=== PATIENT | female | born 1970 | race Caucasian/White ===

== ENCOUNTER → 2017-03-19 | Outpatient (CLI) | payer BC ==
[~2017-03-19] MED LIST: LEVO88TA3 PO; MTR600X PO; OXYC5TAB PO; RIZA5TAB10 PO; SPIR50TA2 PO; VALA1TAB PO
--- NOTE | 2017-03-20 07:47 | MAMMOGRAPHY REPORT ---
BILATERAL DIGITAL SCREENING MAMMOGRAM TOMOSYNTHESIS WITH CAD: 03/19/2017 CLINICAL HISTORY: Routine screening. Patient has no complaints. TECHNIQUE: Breast tomosynthesis in addition to standard 2D mammography was performed. Current study was also evaluated with a Computer Aided Detection (CAD) system. COMPARISON: Comparison is made to exams dated: 08/23/2015 ultrasound, 08/11/2015 mammogram, 08/03/2014 m ammogram, 07/28/2013 mammogram, 07/24/2012 mammogram - [facility], and 03/09/2011 mamm ogram. BREAST COMPOSITION: The tissue of both breasts is heterogeneously dense, which may obscure small mas ses. FINDINGS: A partially circumscribed and obscured mass in the 10:00 middle one third of the left breas t is slightly increased compared to last are seen mammogram, but previously documented to represent a simple cyst on ultrasound. There is a stable grouping of faint punctate microcalcifications in the right breast. No new suspicious mass, architectural distortion or cluster of suspicious microcalcifi cations is seen. IMPRESSION: ACR BI-RADS CATEGORY 1: NEGATIVE There is no mammographic evidence of malignancy. A 1 year screening mammogram is recommended. The pa tient will receive written notification of the results. Approximately 10% of breast cancers are not detected with mammography. A negative mammographic report should not delay biopsy if a clinically suggestive mass is present. Barbara Patiño M.D. ay/:03/19/2017 20:59:06 Computer [employer] Para Professional: Shannan LE(R)(Mir), [facility] letter sent: Normal 1/2 BI-RADS Code: ACR BI-RADS Category 1: Negative
== END | disposition home or self-care (01) ==
LOC: C.MAMM 07:17
PROVIDERS: ATTEND Family Medicine
DX: Z12.31 Encounter for screening mammogram for malignant neoplasm of breast (principal)